=== PATIENT | male | born 1985 | race Caucasian/White ===

== ENCOUNTER 2016-09-22 18:22 | Emergency (ER) | payer SELFPAY ==
[~2016-09-22] VITALS: Ht 177.8 cm; Wt 75.0 kg
[2016-09-22 18:23] VITALS: BP 118/67
== END 2016-09-22 18:59 | disposition home or self-care (01) ==
LOC: ER 18:50
DX: R55 Syncope and collapse (principal); J45.909 Unspecified asthma, uncomplicated; Z88.6 Allergy status to analgesic agent
CPT/HCPCS: 99283